=== PATIENT | male | born 2000 | race Caucasian/White ===

== ENCOUNTER 2021-02-21 11:08 | Emergency (ER) | payer OTHER ==
[~2021-02-21] VITALS: Ht 182.9 cm; Wt 86.4 kg
[2021-02-21 11:18] VITALS: BP 148/91; TEMP 97.8
[2021-02-21 12:50] VITALS: PULSE 83
== END 2021-02-21 12:50 ==
LOC: COL.ER 11:08
DX: J06.9 Acute upper respiratory infection, unspecified (principal); F17.210 Nicotine dependence, cigarettes, uncomplicated; Z20.822 Contact with and (suspected) exposure to COVID-19

== ENCOUNTER 2021-02-24 19:04 | Emergency (ER) | payer SELFPAY ==
[~2021-02-24] VITALS: Ht 182.9 cm; Wt 88.6 kg
[2021-02-24 19:04] VITALS: BP 150/92; TEMP 98.3
[2021-02-24] MEDS ORDERED: NORCO 325 MG-51 TAB PO (20:34)
[2021-02-24 20:43] VITALS: PULSE 91
== END 2021-02-24 20:42 | disposition home or self-care (01) ==
LOC: COL.ER 19:04
DX: S87.01XA Crushing injury of right knee, initial encounter (principal); J06.9 Acute upper respiratory infection, unspecified; Z20.822 Contact with and (suspected) exposure to COVID-19; W23.1XXA Caught, crushed, jammed, or pinched between stationary objects, initial encounter; Y92.009 Unspecified place in unspecified non-institutional (private) residence as the place of occurrence of the external cause; Y99.0 Civilian activity done for income or pay
CPT/HCPCS: L1846